=== PATIENT | female | born 2005 | race Two or more races ===

== ENCOUNTER 2025-02-22 21:11 | Emergency (ER) | payer BC, OTHER ==
[~2025-02-22] VITALS: Ht 172.7 cm; Wt 75.0 kg
--- NOTE | 2025-02-22 22:50 | DVH ---
CT BRAIN WITHOUT CONTRAST HISTORY: subjective right sided numbness/weakness x 1 day TECHNIQUE: Axial scans were obtained from the skull base through the vertex without contrast. Sagitta l and coronal reformats were generated. One or more of the following radiation dose reduction techniq ues were used for this examination: automated exposure control, adjustment of the mA and/or kV accord ing to patient size, use of iterative reconstruction technique. COMPARISON: None FINDINGS: No acute intracranial hemorrhage or evidence of large vessel territorial infarction identified at thi s time. No midline shift. The basilar cisterns are patent. Prieto-white differentiation appears relati vely preserved. The visualized paranasal sinuses and mastoid air cells are clear. No grossly displaced calvarial abno rmalities identified. IMPRESSION: No acute intracranial findings. If there is persistent clinical concern, MRI may be considered to fu rther evaluate.
[2025-02-22 23:44] VITALS: PULSE 98; RESP 17; O2SAT 98
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
[2025-02-23 01:30] VITALS: BP 124/72; PULSE 58; RESP 18; TEMP 98; O2SAT 100
== END 2025-02-23 01:31 | disposition home or self-care (01) ==
LOC: ER 21:11
DX: R20.2 Paresthesia of skin (principal); Z79.899 Other long term (current) drug therapy
CPT/HCPCS: 70450; 81025; 82947

== ENCOUNTER 2025-02-23 12:06 | Inpatient (IN) | payer BC ==
[~2025-02-23] VITALS: Ht 172.7 cm; Wt 83.0 kg
[2025-02-23] MEDS: IOHEXOL 350 MG/ML 100ML IJ ONE (12:39)
--- NOTE | 2025-02-23 12:57 | ED.PDOC ---
HPI (NEURO) HPI Comments 19y F who presents to the ED for chief complaint of R sided weakness. Pt was seen here in the ED yesterday for similar complaints including right facial numbness, R sided weakness and malaise. Pt had a negative head CT yesterday and was discharged home from the ED. Pt states yesterday's symptoms never resolved, and since earlier this AM they have worsened. Currently she is complaining of R upper and lower extremity weakness and numbness with associated posterior headache, difficulty focusing her vision and difficulty with word finding. Pt now in the ED, is alert and oriented x 4 and demonstrates no obvious abnormality in gait or speech. Pt has stable vitals with temp of 97.7 F, heart rate 76, RR 16, BP: 122/76, and 02 sat 96% on room air. 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 COTTON FARMER Hx Family History Family History: Reviewed,noncontributory to illness Social History Smoker: Non-Smoker Alcohol: Denies ETOH Use Drugs: Denies Drug Use Lives In: Home Constitutional: reports: malaise, weakness; denies: chills, diaphoresis, fatigue, fever, sweats, others EENTM: denies: blurred vision, double vision, ear bleeding, ear discharge, ear drainage, ear pain, ear ringing, eye pain, eye redness, hearing loss, mouth pain, mouth swelling, nasal discharge, nose bleeding, nose congestion, nose pain, photophobia, tearing, throat pain, throat swelling, voice changes, others Respiratory: denies: cough, hemoptysis, orthopnea, SOB at rest, shortness of breath, SOB with excertion, stridor, wheezing, others Cardiovascular: denies: chest pain, dizzy spells, diaphoresis, Dyspnea on exertion, edema, irregular heart beat, left arm pain, lightheadedness, palpitations, PND, syncope, others Gastrointestinal: denies: abdomen distended, abdominal pain, blood streaked bowels, constipated, diarrhea, dysphagia, difficulty swallowing, hematemesis, melena, nausea, poor appetite, poor fluid intake, rectal bleeding, rectal pain, vomiting, others Genitourinary: denies: abnormal vagina bleeding, burning, dyspareunia, dysuria, flank pain, frequency, hematuria, incontinence, pain, , vagina discharg e, urgency, others Neurological: reports: right sided weakness; denies: dizziness, fainting, headache, left sided numbness, left sided weakness, numbness, paresthesia, pre- existing deficit, right sided numbness, seizure, speech problems, tingling, tremors, weakness, others Musculoskeletal: denies: back pain, gout, joint pain, joint swelling, muscle pain, muscle stiffness, neck pain, others Integumetry: denies: bruises, change in color, change in hair/nails, dryness, laceration, lesions, lumps, rash, wounds, others Allergic/Immunocompromised: denies: Difficulty Healing, Frequent Infections, Hives, Itching, others Hematologic/Lymphatic: denies: anemia, blood clots, easy bleeding, easy bruising, swollen glands, others Endocrine: denies: excessive hunger, excessive sweating, excessive thirst, excessive urination, flushing, intolerance to cold, intolerance to heat, unexplained weight gain, unexplained weight loss, others Psychiatric: denies: anxiety, bipolar disorder, depression, hopeless, panic disorder, schizophrenia, sleepless, suicidal, others All Other Systems: Reviewed and Negative Physical Exam General Appearance: No Apparent Distress HEENT: PERRL/EOMI, Other (No facial asymmetry. Subjective diminished light touch sensation right face.) Neck: Full Range of Motion, Normal Inspection Respiratory: Lungs Clear, No Accessory Muscle Use, No Respiratory Distress, Normal Breath Sounds Cardiovascular: No Edema, No JVD, Regular Rate/Rhythm Breast Exam: Deferred Gastrointestinal: Non Tender, Soft Genitalia: Deferred Pelvic: Deferred Rectal: Deferred Extremities: Normal inspection, Normal range of motion, Non-tender, No pedal edema Neurologic: Alert (Oriented x4), gill tender II-XII nml as Tested (With subjective diminished light touch sensation on the right face), Motor Weakness (Right lower extremity strength 4/5, 5/5 all other extremities), Normal Affect, Normal Mood, Other (Positive pronator drift on the right) Cerebellar Function: NOT DONE Reflexes: NOT DONE Skin: Dry, Normal Color, Warm Lymphatic: NOT DONE EKG EKG : Comments Sinus rhythm, rate 76, normal intervals, normal axis, normal QRS, nonspecific T change. Was a procedure done? Was a procedure done?: No Differential Diagnosis (SZ) Seizure: CVA/TIA General Weakness: Anemia, Dehydration, Electrolyte imbalance, Encephalopathy, Hypoglycemia Headache: Migraine, Closed Head Injury, Epidural Hemorrhage, Intracerebral Hemorrhage, Subarachnoid Hemorrhage, Subdural Hemorrhage, Mass Lesion X-Ray, Labs, Meds, VS Vital Signs Date Time Temp Pulse Resp B/P (MAP) Pulse Ox O2 Delivery O2 Flow Rate FiO2 02/23/25 12:24 76 02/23/25 12:07 97.7 79 16 122/75 96 97.7 Lab Test 02/23/25 12:53 Range/Units White Blood Count 9.5 4.4-10.8 10^3/uL Red Blood Count 3.91 L 4.0-5.20 10^6/uL Hemoglobin 12.2 12.2-16.2 g/dL Hematocrit 36.1 36.0-46.0 % Mean Corpuscular Volume 92.3 80.0-100.0 fL Mean Corpuscular Hemoglobin 31.3 28.0-32.0 pg Mean Corpuscular Hemoglobin Concent 33.9 32.0-36.0 g/dL Red Cell Distribution Width 13.4 11.8-14.3 % Platelet Count 233 140-450 10^3/uL Mean Platelet Volume 8.6 6.9-10.8 fL Neutrophils (%) (Auto) 68.2 37.0-80.0 % Lymphocytes (%) (Auto) 20.9 10.0-50.0 % Monocytes (%) (Auto) 9.8 0.0-12.0 % Eosinophils (%) (Auto) 0.7 0.0-7.0 % Basophils (%) (Auto) 0.4 0.0-2.0 % Neutrophils # (Auto) 6.5 1.6-8.6 10 ^3/uL Lymphocytes # (Auto) 2.0 0.4-5.4 10 ^3/uL Monocytes # (Auto) 0.9 0-1.3 10 ^3/uL Eosinophils # (Auto) 0.1 0-0.8 10 ^3/uL Basophils # (Auto) 0 0-0.2 10 ^3/uL Nucleated Red Blood Cells 0.0 % Prothrombin Time 10.7 9.3-11.8 sec Prothrombin Time INR 1.01 0.9-1.15 Activated Partial Thromboplast Time 25.3 24.5-34.5 SEC Sodium Level 137 136-145 mmol/L Potassium Level 4.7 3.5-5.1 mmol/L Chloride Level 105 98-107 mmol/L Carbon Dioxide Level 25 20-31 mmol/L Anion Gap 7 5-15 Blood Urea Nitrogen 18 9-23 mg/dL Creatinine 0.96 0.550-1.02 mg/dL Glomerular Filtration Rate Calc 86 >90 mL/min BUN/Creatinine Ratio 18.8 10.0-20.0 Serum Glucose 101 74-106 mg/dL Calcium Level 9.2 8.7-10.4 mg/dL Current Medications Medications (Trade) Dose Ordered Sig/Delvin Route Start Time Stop Time Status Last Admin Aspirin 325 mg ONCE ONCE PO 02/23/25 14:15 02/23/25 14:16 DC 02/23/25 16:40 PROCEDURE(s): [place] - ANGIO HEAD/Neck REASON: RUE/RLE weakness ORDER NUMBER(s): [id number], ACCESSION NUMBER(s): [id number] RCLINICAL INFORMATION: Right upper extremity and right lower extremity weakness. TECHNIQUE: Axial CTA images of the head and neck were obtained prior to and after the uneventful administration of 100 mL Omnipaque 350 IV contrast. Coronal and sagittal reformatted images and MIP images were obtained, reviewed, and stored. Measurements of carotid stenosis are made per NASCET criteria. All CT scans at this medical facility are performed using dose modulation techniques as appropriate to a performed exam including the following: Automated exposure control was utilized; adjustment of the MA and/or KV according to patient size; and use of iterative reconstruction technique. CTDIvol = mGy DLP = 31.35 mGy-cm COMPARISON: CT HEAD WITHOUT CONTRAST on DOS: 02/22/25 FINDINGS: Noncontrast CT head: No acute intracranial hemorrhage. No mass effect or midline shift. Ventricles, sulci, and basal cisterns appear unremarkable. Calvarium is normal. Paranasal sinuses and mastoid air cells are clear. CTA HEAD: Posterior cerebral arteries, basilar artery, and intracranial segments of the distal vertebral arteries are normal in caliber and course with no evidence of aneurysm, large vessel occlusion, significant stenosis, or vascular malformation. The anterior and middle cerebral arteries and intracranial segments of the distal internal carotid arteries are normal in caliber and course with no evidence of aneurysm, large vessel occlusion, significant stenosis, or vascular malformation. CTA NECK: Normal configuration of the aortic arch with patent origins of the brachiocephalic artery, left common carotid artery, and left subclavian artery. Subclavian arteries are patent with no significant stenosis. The bilateral common carotid, internal carotid, and external carotid arteries are patent with no significant stenosis or evidence of dissection. Vertebral arteries are patent with no significant stenosis or evidence of dissection. IMPRESSION: 1. No acute intracranial abnormality. 2. CTA head demonstrates no evidence of large vessel occlusion, aneurysm, or significant stenosis. 3. CTA neck demonstrates no evidence of carotid or vertebral dissection or significant stenosis. 4. Additional findings as detailed above. X-Ray, Labs, Meds, VS Comment 19-year-old female with no significant past medical history presenting with ri ght facial numbness and right upper and lower extremity weakness since yesterday Vitals unremarkable Exam remarkable for subjective diminished light touch sensation on the right face, right pronator drift and 4/5 strength in the right lower extremity Rhythm strip independently interpreted by me: Sinus rhythm, rate 76, no ectopy. CT angio head and neck IMPRESSION: 1. No acute intracranial abnormality. 2. CTA head demonstrates no evidence of large vessel occlusion, aneurysm, or significant stenosis. 3. CTA neck demonstrates no evidence of carotid or vertebral dissection or significant stenosis. 4. Additional findings as detailed above. CBC, basic metabolic panel and coag panel unremarkable Patient treated with the following in the ED: Aspirin 325 mg p.o. On re-evaluation there have been no new neurologic changes. Vitals were stable. Plan is to admit the patient for brain MRI and Neurology evaluation. Time of 1ST Reevaluation: 13:49 Reevaluation 1ST: Unchanged Patient Education/Counseling: Diagnosis, Treatment Family Education/Counseling: No Family Present Departure 1 Departure Time of Disposition: 14:00 Impression: Primary Impression: Right sided weakness Disposition: ADMITTED INPATIENT Admit to: [place] Condition: Guarded Critical Care Note Critical Care Time?: No Stability Stability form required: No Heart Score Heart Score: Heart Score Response (Comments) Value History N/A 0 EKG N/A 0 Age N/A 0 Risk Factors N/A 0 Troponin N/A 0 Total 0 I personally scribed for EVELYN PETERS MD ([email or web address]) on 02/23/25 at 12:57. Electronically submitted by Radha Cortés ([facility]). EVELYN PETERS MD Feb 23, 2025 12:57
[2025-02-23 13:06] LABS: Hematocrit 36.1 % (36.0-46.0); Hemoglobin 12.2 g/dL (12.2-16.2); Mean Corpuscular Hemoglobin 31.3 pg (28.0-32.0); Mean Corpuscular Volume 92.3 fL (80.0-100.0); Nucleated Red Blood Cells % 0.0 %
[2025-02-23 13:16] LABS: Chloride 105 mmol/L (98-107); Potassium 4.7 mmol/L (3.5-5.1); Sodium 137 mmol/L (136-145)
[2025-02-23 13:17] LABS: Anion Gap 7 (5-15); Calcium 9.2 mg/dL (8.7-10.4); Carbon Dioxide 25 mmol/L (20-31)
[2025-02-23 13:22] LABS: BUN/Creatinine Ratio 18.8 (10.0-20.0); Blood Urea Nitrogen 18 mg/dL (9-23); Glucose 101 mg/dL (74-106); INR 1.01 (0.9-1.15); Partial Thromboplastin Time 25.3 SEC (24.5-34.5); Prothrombin Time 10.7 sec (9.3-11.8)
--- NOTE | 2025-02-23 13:52 | DVH ---
RCLINICAL INFORMATION: Right upper extremity and right lower extremity weakness. TECHNIQUE: Axial CTA images of the head and neck were obtained prior to and after the uneventful adm inistration of 100 mL Omnipaque 350 IV contrast. Coronal and sagittal reformatted images and MIP imag es were obtained, reviewed, and stored. Measurements of carotid stenosis are made per NASCET criteria . All CT scans at this medical facility are performed using dose modulation techniques as appropriate to a performed exam including the following: Automated exposure control was utilized; adjustment of the MA and/or KV according to patient size; and use of iterative reconstruction technique. CTDIvol = mGy DLP = 31.35 mGy-cm COMPARISON: CT HEAD WITHOUT CONTRAST on DOS: 02/22/25 FINDINGS: Noncontrast CT head: No acute intracranial hemorrhage. No mass effect or midline shift. Ventricles, s ulci, and basal cisterns appear unremarkable. Calvarium is normal. Paranasal sinuses and mastoid air cells are clear. CTA HEAD: Posterior cerebral arteries, basilar artery, and intracranial segments of the distal verteb ral arteries are normal in caliber and course with no evidence of aneurysm, large vessel occlusion, s ignificant stenosis, or vascular malformation. The anterior and middle cerebral arteries and intracra nial segments of the distal internal carotid arteries are normal in caliber and course with no eviden ce of aneurysm, large vessel occlusion, significant stenosis, or vascular malformation. CTA NECK: Normal configuration of the aortic arch with patent origins of the brachiocephalic artery, left common carotid artery, and left subclavian artery. Subclavian arteries are patent with no signif icant stenosis. The bilateral common carotid, internal carotid, and external carotid arteries are pat ent with no significant stenosis or evidence of dissection. Vertebral arteries are patent with no sig nificant stenosis or evidence of dissection. IMPRESSION: 1. No acute intracranial abnormality. 2. CTA head demonstrates no evidence of large vessel occlusion, aneurysm, or significant stenosis. 3. CTA neck demonstrates no evidence of carotid or vertebral dissection or significant stenosis. 4. Additional findings as detailed above.
[2025-02-23] MEDS ORDERED: MORPHINE SULFATE INJ 2 MG/ml SYRG IV PRN (15:45)
[2025-02-23] MEDS ORDERED: DOCUSATE SOD 100 MG CAP PO PRN (15:45)
[2025-02-23] MEDS ORDERED: NITROGLYCERIN 0.4 MG SL TAB SL PRN (15:45)
[2025-02-23] MEDS ORDERED: ONDANSETRON HCL 4 MG/2 ML VIAL IV PRN (15:45)
--- NOTE | 2025-02-23 16:08 | DVHHP2 ---
History of Present Illness Reason for Visit: Right-sided weakness History of Present Illness 19-year-old female no past medical history no surgical history chief complaint patient stated she came here yesterday for similar symptoms she had a CT scan of the brain was discharged home told her she had anxiety but she states she woke up this morning with worsening right-sided weakness and numbness and slurred speech at 6:00 a.m.. Patient also state she feels tired. She stated she has continued right-sided numbness and tingling. She also complain of a headache with some dizziness. Nothing making it better nothing making it worse. Patient does admit that on February 15, 2025 she has a lumbar phosphate injection for some back issues at [facility] she did called the center and they stated her current symptoms were not related to her back injection she does not complain of lower back pain patient denies any chest pain no shortness with the breath when evaluating patient's labs and imaging from ED CBC was unremarkable BNP unremarkable patient was provided aspirin CT angio head was unremarkable along with the neck unremarkable patient had a CT scan of the brain I reviewed from yesterday was unremarkable with these findings we will admit and ask for Neurology evaluation also we will keep NPO until swallow test is completed. We will admit for rule out ischemic stroke Pulmonary: COPD Past Medical History See HPI above Past Surgical History See HPI above Family History Reviewed, non-contributory to the management of this case. Past Social History The patient lives at home, denies smoking, alcohol or illicit drugs abuse. Review of Systems Constitutional: No: Fever, Chills, Sweats, Weakness, Malaise, Other Eyes: No: Pain, Vision change, Conjunctivae inflammation, Eyelid inflammation, Other, Redness ENT: No: Ear pain, Ear discharge, Nose pain, Nose discharge, Nose congestion, Mouth pain, Mouth swelling, Throat pain, Throat swelling, Other Respiratory: No: Cough, Dry, Shortness of breath, SOB with excertion, Wheezing, Hemoptysis, Pleuritic Pain, Sputum, Wheezing, Other Cardiovascular: No: Chest Pain, Palpitations, Orthopnea, Paroxysmal Noc. Dyspnea, Edema, Lt Headedness, Other Gastrointestinal: No: Nausea, Vomiting, Abdominal Pain, Diarrhea, Constipation, Melena, Hematochezia, Other Genitourinary: No Dysuria, No Frequency, No Incontinence, No Hematuria, No Retention, No Other Musculoskeletal: No: other, neck pain, shoulder pain, arm pain, back pain, hand pain, leg pain, foot pain Skin: No: Rash, Lesions, Jaundice, Bruising, Other Neurological: Weakness, Numbness, Change in speech Allergies: Coded Allergies: NO KNOWN ALLERGIES (Unverified , 02/22/25) Medications Current Medications Medications Dose Ordered Sig/Delvin Route Start Time Stop Time Status Last Admin Dose Admin Sodium Chloride 1,000 ml @ 120 mls/hr Q8H20M IV 02/23/25 15:45 UNV Ondansetron HCl 4 mg Q4HP PRN IV 02/23/25 15:45 UNV Docusate Sodium 100 mg BIDPRN PRN PO 02/23/25 15:45 UNV Morphine Sulfate 2 mg Q4HPRN PRN IV 02/23/25 15:45 UNV Nitroglycerin 0.4 mg Q5MINP PRN SL 02/23/25 15:45 UNV Aspirin 81 mg DAILY PO 02/24/25 10:00 UNV Exam Vital Signs Vital Signs Date Time Temp Pulse Resp B/P (MAP) Pulse Ox O2 Delivery O2 Flow Rate FiO2 02/23/25 12:24 76 02/23/25 12:07 97.7 16 122/75 96 97.7 General Appearance: Alert, Oriented X3, Cooperative, No acute distress HEENT: Atraumatic, PERRLA, EOMI, Mucous membr. moist/pink Respiratory: Clear to auscultation, Normal air movement Cardiovascular: Regular rate, Normal S1, Normal S2, No murmurs Abdominal: Normal bowel sounds, Soft, No tenderness, No hepatospenomegaly, No masses Extremities: No clubbing, No cyanosis, No edema, Normal pulses, No tenderness/swelling Skin: No rashes, No breakdown, No significant lesion Neuro: Other (Right-sided weakness noted on my exam positive pronator drift, lower lumbar no swelling no deformity no open wounds) Psych/Mental Status: Mental status NL, Mood NL Labs/Xrays CT scan of the brain reviewed from yesterday unremarkable CT angio head and neck unremarkable I reviewed labs, imaging CT scan abdomen pelvis, EKG and all diagnostic studies on this patient from ED records and the medical chart Labs Test 02/23/25 12:53 Range/Units White Blood Count 9.5 4.4-10.8 10^3/uL Red Blood Count 3.91 L 4.0-5.20 10^6/uL Hemoglobin 12.2 12.2-16.2 g/dL Hematocrit 36.1 36.0-46.0 % Mean Corpuscular Volume 92.3 80.0-100.0 fL Mean Corpuscular Hemoglobin 31.3 28.0-32.0 pg Mean Corpuscular Hemoglobin Concent 33.9 32.0-36.0 g/dL Red Cell Distribution Width 13.4 11.8-14.3 % Platelet Count 233 140-450 10^3/uL Mean Platelet Volume 8.6 6.9-10.8 fL Neutrophils (%) (Auto) 68.2 37.0-80.0 % Lymphocytes (%) (Auto) 20.9 10.0-50.0 % Monocytes (%) (Auto) 9.8 0.0-12.0 % Eosinophils (%) (Auto) 0.7 0.0-7.0 % Basophils (%) (Auto) 0.4 0.0-2.0 % Neutrophils # (Auto) 6.5 1.6-8.6 10 ^3/uL Lymphocytes # (Auto) 2.0 0.4-5.4 10 ^3/uL Monocytes # (Auto) 0.9 0-1.3 10 ^3/uL Eosinophils # (Auto) 0.1 0-0.8 10 ^3/uL Basophils # (Auto) 0 0-0.2 10 ^3/uL Nucleated Red Blood Cells 0.0 % Prothrombin Time 10.7 9.3-11.8 sec Prothrombin Time INR 1.01 0.9-1.15 Activated Partial Thromboplast Time 25.3 24.5-34.5 SEC Sodium Level 137 136-145 mmol/L Potassium Level 4.7 3.5-5.1 mmol/L Chloride Level 105 98-107 mmol/L Carbon Dioxide Level 25 20-31 mmol/L Anion Gap 7 5-15 Blood Urea Nitrogen 18 9-23 mg/dL Creatinine 0.96 0.550-1.02 mg/dL Glomerular Filtration Rate Calc 86 >90 mL/min BUN/Creatinine Ratio 18.8 10.0-20.0 Serum Glucose 101 74-106 mg/dL Calcium Level 9.2 8.7-10.4 mg/dL SEPSIS Sepsis Screen Date sepsis recognized/suspect: Feb 23, 2025 Time Sepsis recognized/suspect: 1209 Recent Procedure: No On Antibiotic Therapy: No Respiratory Rate >20: No Heart Rate >90: No Temp<36 C (96.8 F) or >38.3 C: No SBP <90 or MAP <65 mmHG: No New Acute Mental Status Change: No Is the patient on CPAP, BIPAP,: No Physician Orders Urinalysis (02/23/25 12:20) Electrocardigram (02/23/25 12:20) Angio Head/Neck (02/23/25 12:30) * Neurology Consult (02/23/25 15:38) Neuro Checks Q2hrs Q2HR (02/23/25 15:38) Admit (02/23/25 15:38) Allergies (02/23/25 15:38) Code Status (02/23/25 15:38) Sodium Chloride 0.9% (02/23/25 15:45) Ondansetron Hcl (Zofran) (02/23/25 15:45) Docusate Sodium Capsule (Colace Capsule) (02/23/25 15:45) Complete Blood Count (02/24/25 04:00) Comprehensive Metabolic Panel (02/24/25 04:00) Npo (Nothing By Mouth) Diet (02/23/25 Dinner) Pt Request For Service (02/23/25 15:38) Condition: Stable (02/23/25 15:38) BRP (02/23/25 15:38) Morphine Sulfate Injection (02/23/25 15:45) Sequential Compression Device (02/23/25 ) Nitroglycerin Sublingual (Ntrostat Subli (02/23/25 15:45) Stat Ekg For Chest Pain (02/23/25 15:38) Notify Md Of Changes From Base (02/23/25 15:38) Welding Tester For 24 Hours (02/23/25 15:38) Emergency Dysrhythmia Protocol (02/23/25 15:38) Rhythm Strips Once Every Shift (02/23/25 15:38) Oxygen By Nasal Cannula (02/23/25 15:38) * Swallow Request (02/23/25 15:38) Aspirin Tablet (02/23/25 15:45) Aspirin Tablet (02/24/25 10:00) Vital Signs Date Time Temp Pulse Resp B/P (MAP) Pulse Ox O2 Delivery O2 Flow Rate FiO2 02/23/25 12:24 76 02/23/25 12:07 97.7 79 16 122/75 96 97.7 Laboratory Tests Test 02/23/25 12:53 White Blood Count 9.5 10^3/uL (4.4-10.8) Assessment/Plan Assessment/Plan acute right side weakness r/o ischemic stroke ct scan brain negative, ct angio head and neck negative ordered asa Neurology consult Consider MRI of the brain Stroke protocol and precautions PT OT eval and treat Cardiac diet cons asa atorvastatin neuro checks q2h ordered swallow eval fall precautions Bedrest ordered Echo fu results Acute dizziness rule out stroke ordered aspirin fall precaution Pt eval and treat fen/ppx npo until swallow evaluation hl ivf scd plan admit to medicine neurology consult Plan discussed with: Patient My Orders Orders - SHANEKA GIBBS DNP Procedure Category Date Status Time * Neurology Consult CONS 02/23/25 Transmitted 15:38 Neuro Checks Q2hrs XIMENA 02/23/25 In Process 15:38 Admit ADMIT 02/23/25 Transmitted 15:38 Allergies XIMENA 02/23/25 In Process 15:38 Code Status CODE 02/23/25 Transmitted 15:38 Sodium Chloride 0.9% PHA 02/23/25 Logged 15:45 Ondansetron Hcl PHA 02/23/25 Logged (Zofran) 15:45 Docusate Sodium PHA 02/23/25 Logged Capsule (Colace 15:45 Complete Blood Count LAB 02/24/25 Verified 04:00 Comprehensive LAB 02/24/25 Verified Metabolic Panel 04:00 Npo (Nothing By DIET 02/23/25 Transmitted Mouth) Diet Dinner Pt Request For Service PT 02/23/25 Logged 15:38 Condition: Stable XIMENA 02/23/25 In Process 15:38 BRP XIMENA 02/23/25 In Process 15:38 Morphine Sulfate PHA 02/23/25 Logged Injection 15:45 Sequential XIMENA 02/23/25 In Process Compression Device Nitroglycerin PHA 02/23/25 Logged Sublingual (Ntrostat 15:45 Stat Ekg For Chest XIMENA 02/23/25 In Process Pain 15:38 Notify Of Changes XIMENA 02/23/25 In Process From Base 15:38 Welding Tester For [facility] 02/23/25 In Process 24 Hours 15:38 Emergency Dysrhythmia [facility] 02/23/25 In Process Protocol 15:38 Rhythm Strips Once [facility] 02/23/25 In Process Every Shift 15:38 Oxygen By Nasal RT 02/23/25 Transmitted Cannula 15:38 * Swallow Request ST 02/23/25 Transmitted 15:38 Aspirin Tablet PHA 02/23/25 Logged 15:45 Aspirin Tablet PHA 02/24/25 Logged 10:00 Date of Service: Feb 23, 2025 Billing Provider: SHANEKA GIBBS DNP Common Visit Codes: [id number] INP/OBS CARE (HIGH) SHANEKA GIBBS DNP Feb 23, 2025 16:08
[2025-02-23] MEDS: SODIUM CHLORIDE 0.9% 1,000 ML IV SCH (18:18)
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
--- NOTE | 2025-02-23 23:34 | ECG ---
[facility] Test Date: 2025-02-23 Test Time: 12:24:33 Pat Name: DAVID CORDON Department: ED Room: 024[facility] Gender: F Bullard Operator: ER : 2005 Requested By: EVELYN CHRISTENSEN Order Number: [id number] Reading MD: Rafael Jensen Measurements Intervals [place] Rate: 76 P: 75 NC: 149 QRS: 87 QRSD: 83 T: 24 QT: 374 QTc: 421 Interpretive Statements Sinus rhythm Borderline T wave abnormalities Electronically Signed On 02-27-2025 18:06:50 PDT by Rafael Jensen Please click the below link to view image of tracing.
--- NOTE | 2025-02-23 23:35 | ECG ---
[facility] Test Date: 2025-02-23 Test Time: 18:24:23 Pat Name: DAVID CORDON Department: ED Room: 024[facility] Gender: F Security Guard: CARLO : 2005 Requested By: EVELYN CHRISTENSEN Order Number: [id number] Reading MD: Rafael Jensen Measurements Intervals [place] Rate: 78 P: 63 NM: 157 QRS: 75 QRSD: 82 T: 44 QT: 381 QTc: 434 Interpretive Statements Sinus rhythm Consider left atrial enlargement Electronically Signed On 02-27-2025 18:12:05 PDT by Rafael Jensen Please click the below link to view image of tracing.
[2025-02-24] VITALS (10 sets, daily range): BP systolic 101–132; BP diastolic 59–83; PULSE 61–79; RESP 14–20; TEMP 96.8–98.7; O2SAT 98–100
[2025-02-24 08:20] LABS: Hematocrit 35.8 % (36.0-46.0); Hemoglobin 12.2 g/dL (12.2-16.2); Mean Corpuscular Hemoglobin 31.3 pg (28.0-32.0); Mean Corpuscular Volume 92.0 fL (80.0-100.0); Nucleated Red Blood Cells % 0.0 %
[2025-02-24 08:25] LABS: Urine Protein, UAD Negative (Negative)
[2025-02-24 08:38] LABS: Alanine Aminotransferase 13 U/L (7-40); Albumin 4.3 g/dL (3.2-4.8); Anion Gap 9 (5-15); BUN/Creatinine Ratio 17.7 (10.0-20.0); Bilirubin, Total 0.5 mg/dL (0.2-1.0); Blood Urea Nitrogen 14 mg/dL (9-23); Calcium 8.9 mg/dL (8.7-10.4); Carbon Dioxide 24 mmol/L (20-31); Glucose 85 mg/dL (74-106); Potassium 4.2 mmol/L (3.5-5.1); Sodium 140 mmol/L (136-145); Total Protein 6.5 g/dL (5.7-8.2)
[2025-02-24 08:40] LABS: Alkaline Phosphatase 35 U/L (46-116); Chloride 107 mmol/L (98-107)
--- NOTE | 2025-02-24 09:40 | DVH ---
CLINICAL INDICATION: CVA COMPARISON: CT HEAD WITHOUT CONTRAST on DOS: 02/22/25 TECHNIQUE: Multisequence multiplanar MRI images of the brain were obtained without contrast. FINDINGS: Focal area of restricted diffusion measuring up to 2.5 cm in the left frontal lobe white m atter adjacent to the atrium of the left lateral ventricle. There is associated mild T2/FLAIR hyperin tense signal in this location. There are multiple additional smaller foci of T2/FLAIR hyperintense s ignal in the periventricular white matter bilaterally. No mass or midline shift. Ventricles and sulci are within normal limits. Basal cisterns are patent. Cerebellum, brainstem, and midline structures a re within normal limits. Mild mucosal thickening of the paranasal sinuses. Orbits are grossly unremar kable. IMPRESSION: Focal area of restricted diffusion in the left frontal lobe periventricular white matter with associa marisela mild T2/FLAIR hyperintense signal in this location. Multiple additional smaller foci of T2/FLAIR hyperintense signal are seen in the periventricular white matter bilaterally without associated restr icted diffusion. Differential considerations would include sequelae of ischemia, including acute or s ubacute ischemia involving the focus of restricted diffusion in the left frontal lobe. Other potentia l etiologies would include demyelinating disease or vasculitis, although no findings to suggest vascu litis on recent CTA exam. Correlate with clinical findings.
[2025-02-24] MEDS: SODIUM CHLORIDE 0.9% 1,000 ML IV SCH (14:21)
--- NOTE | 2025-02-24 21:14 | DVHPN2 ---
Subjective Alert awake oriented to place and person comfortable in bed. Mother is at bedside. Evaluated by neurologist. Had an MRI of the brain showed nonspecific findings. Changes from previous H/P or p: No Changes Objective Vitals Vital Signs Date Time Temp Pulse Resp B/P (MAP) Pulse Ox O2 Delivery O2 Flow Rate FiO2 02/24/25 17:10 97.8 72 19 110/67 (81) 98 97.8 02/24/25 08:00 Room Air* 0 21 Intake/Output Intake and Output 02/24/25 07:00 Intake Total 0 ml Balance 0 ml Intake Oral 0 ml Exam She is comfortable in bed. Able to get up and walk with the physical therapy. Says her back pain and numbness in the leg is improving. Patient does not have any complains of blurred vision. No headache nausea vomiting. Pupils equal round react to light. Neck supple. No nystagmus. Heart regular rate and rhythm S1-S2. Lungs fair air movement without rales wheezes. Abdomen soft nontender positive bowel sounds. Extremities no edema positive pulses. Neurologically no focal deficits noted. Medications Current Medications Medications Dose Ordered Sig/Delvin Route Start Time Stop Time Status Last Admin Dose Admin Ondansetron HCl 4 mg Q4HP PRN IV 02/23/25 15:45 Docusate Sodium 100 mg BIDPRN PRN PO 02/23/25 15:45 Morphine Sulfate 2 mg Q4HPRN PRN IV 02/23/25 15:45 Nitroglycerin 0.4 mg Q5MINP PRN SL 02/23/25 15:45 Aspirin 81 mg DAILY PO 02/24/25 10:00 02/24/25 09:37 81 MG Sodium Chloride 1,000 ml @ 70 mls/hr [id number] IV 02/24/25 12:30 02/24/25 14:21 70 MLS/HR Laboratory Results Laboratory Tests 02/24/25 06:58 Chemistry Test 02/24/25 06:58 Albumin 4.3 g/dL (3.2-4.8) Calcium Level 8.9 mg/dL (8.7-10.4) Total Protein 6.5 g/dL (5.7-8.2) LFT Test 02/24/25 06:58 Alanine Aminotransferase (ALT) 13 U/L (7-40) Alkaline Phosphatase 35 U/L (46-116) L Aspartate Amino Transferase (AST) 14 U/L (13-40) Total Bilirubin 0.5 mg/dL (0.2-1.0) Urinalysis Test 02/24/25 07:20 Urine Color Yellow (Yellow) Urine Clarity Clear (Clear) Urine pH 6.0 (5.0-9.0) Urine Specific [place] 1.030 (1.001-1.035) Urine Protein Negative (Negative) Urine Ketones Negative (Negative) Urine Blood Negative /uL (Negative) Urine Nitrite Negative (Negative) Urine Bilirubin Negative (Negative) Urine Urobilinogen Normal mg/dL (Negative) Urine Leukocyte Esterase Negative /uL (Negative) Urine RBC <1 /hpf (0 - 4) Urine Microscopic WBC 2 /HPF (0-5) Urine Squamous Epithelial Cells Few /hpf (<5) Urine Bacteria Few /hpf (None Seen) H Urine Mucus Few (None Seen) Urine Glucose Normal mg/dL (Normal) Assessment/Plan Assessment/Plan To continue present supportive care and treatment as he is on. Encouraged activity. We will check vitamin B12 levels and thyroid panel for paresthesias. Otherwise continue rest of supportive care and treatment and further clinical management per clinical course and recommendations from the urologist. Updated the patient's mom at bedside regarding care plan. Plan discussed with: Patient, Other My Orders Orders - SANTIAGO BERMUDEZ MD Procedure Category Date Status Time Cardiac DIET 02/24/25 Transmitted Diet-2gna,Lofat,Lochol Lunch Sodium Chloride 0.9% PHA 02/24/25 In Process 12:30 Problem List: (1) Facial paresthesia (2) Right sided weakness (3) Paresthesia of right arm and leg Date of Service: Feb 24, 2025 Billing Provider: SANTIAGO BERMUDEZ MD Common Visit Codes: [id number] INP/OBS CARE(MOD) SANTIAGO BERMUDEZ MD Feb 24, 2025 21:14
--- NOTE | 2025-02-24 23:27 | DVHPN2 ---
Progress Note - Dictate Date Seen: Feb 24, 2025 Medical Necessity Reason Pt with a Central, PICC or Fol: No Subjective Ms. Jose is a 19 years old right-handed female otherwise healthy, she came to the [facility] with a chief company of right-sided numbness I have seen and examined the patient, discussed with her nurse, the patient reports doing much better today, she is able to walk with a walker, she has no new complaints But MRI brain scan showed multiple lesions, I suspect MS, vasculitis or inflammatory disorder Urinalysis, 02/24/2025: No UTI CBC, 02/23/2025: Unremarkable BMP 02/23/25: Okay CT head, 02/22/2025: No acute intracranial findings. If there is persistent clinical concern, MRI may be considered to further evaluate. CTA head, neck, 02/23/2025: 1. No acute intracranial abnormality. 2. CTA head demonstrates no evidence of large vessel occlusion, aneurysm, or significant stenosis. 3. CTA neck demonstrates no evidence of carotid or vertebral dissection or significant stenosis. 4. Additional findings as detailed above MRI head, 02/24/2025: Focal area of restricted diffusion in the left frontal lobe periventricular white matter with associated mild T2/FLAIR hyperintense signal in this location. Multiple additional smaller foci of T2/FLAIR hyperintense signal are seen in the periventricular white matter bilaterally without associated restricted diffusion. Differential considerations would include sequelae of ischemia, including acute or subacute ischemia involving the focus of restricted diffusion in the left frontal lobe. Other potential etiologies would include demyelinating disease or vasculitis, although no findings to suggest vasculitis on recent CTA exam. Correlate with clinical findings. vital signs Vital Sign Date Time Temp Pulse Resp B/P (MAP) Pulse Ox O2 Delivery O2 Flow Rate FiO2 02/24/25 21:00 98.1 76 16 118/68 (85) 99 98.1 02/24/25 08:00 Room Air* 0 21 Total Intake and Output 02/23/25 02/23/25 02/24/25 15:00 23:00 07:00 Intake Total 0 ml Balance 0 ml medications Current Medications Medications Dose Ordered Sig/Delvin Route Start Time Stop Time Status Last Admin Dose Admin Ondansetron HCl 4 mg Q4HP PRN IV 02/23/25 15:45 Docusate Sodium 100 mg BIDPRN PRN PO 02/23/25 15:45 Morphine Sulfate 2 mg Q4HPRN PRN IV 02/23/25 15:45 Nitroglycerin 0.4 mg Q5MINP PRN SL 02/23/25 15:45 Aspirin 81 mg DAILY PO 02/24/25 10:00 02/24/25 09:37 81 MG Sodium Chloride 1,000 ml @ 70 mls/hr [id number] IV 02/24/25 12:30 02/24/25 14:21 70 MLS/HR objective General: the patient is well developed and nourished. No acute distress. MENTAL STATUS: Subjective SPEECH, LANGUAGE, HIGHER CORTICAL FUNCTION: no aphasia or dysathria. CRANIAL NERVES: Pupils are equal, round and reactive. EOMs full and conjugate. No nystagmus. Diminished pinprick and light touch in the right face, but absence of pinprick light touch if both side face is examined simultaneously. Mandibular strength intact. Facial muscles symmetrical and strength intact. Tongue midline. No fasciculations or atrophy. SENSATION: Sensation to touch and pinprick is diminished in the right neck, shoulder, extremities and torso, the sensation to light touch and pinprick is a bsent in the right neck, shoulder, extremities, torso if both side are examined simultaneously MOTOR: Normal tone in the upper and lower extremity. Normal muscle bulk. No fasciculations. No abnormal movements or posturing. Muscle strength of the major groups in the left extremities is 5/5. Muscle strength of the major groups in the right extremities is3-4/5. REFLEXES: Deep tendon reflexes are symmetrical. No pathological reflexes. CEREBELLAR/COORDINATION: Deferred GAIT/STATION: deferred.Whole right-sided paresthesia, weakness, etiology unclear laboratory and microbiology Laboratory Tests 02/24/25 06:58 Test 02/24/25 06:58 Range/Units Serum Glucose 85 74-106 mg/dL Problem List Whole right-sided paresthesia, weakness, etiology unclear Multiple sclerosis Sarcoidosis Vasculitis As inflammatory disorder Assessment/Plan Monitoring Supportive treatment Telemetry CRP ESR ESTHER RF C3, C4 RICHARD ANCA panel Chest x-ray MRI brain w scan MRI C-spine with without contrast MRI T-spine with without contrast Up to chair Physical therapy More recommendation per clinical course This medical document was created using an electronic medical record system with sevenload dictation system. Although this document has been carefully reviewed, there may still be some phonetic and typographical errors. These areas are purely typographical due to imperfections of the software programs, and do not reflect any compromise in the patient's medical care. Prognosis poor Plan discussed with: Patient, Other Total Time (mins): 40 DANN RICE MD Feb 24, 2025 23:27
[2025-02-25] VITALS (8 sets, daily range): BP systolic 109–134; BP diastolic 56–80; PULSE 67–80; RESP 12–18; TEMP 97.5–99.4; O2SAT 95–99
[2025-02-25] MEDS ORDERED: LORazepam 2MG/ML-1ML VIAL IV PRN
--- NOTE | 2025-02-25 10:34 | DVH ---
CLINICAL INFORMATION: Multiple sclerosis. TECHNIQUE: Multisequence multiplanar MRI images of the cervical spine were obtained prior to and afte r the uneventful administration of clariscan contrast. Exam title says MRI neck with contrast, [facility] was performed due to the clinical indication for the examination. COMPARISON: MRI BRAIN HEAD WO CONTRAST on DOS: 02/24/25, CT ANGIO HEAD/NECK on DOS: 02/23/25 FINDINGS: Bones: Mild reversal of the normal cervical lordosis. No significant spondylolisthesis. Vertebral genesis dy heights are maintained. Posterior elements are intact. No acute fracture. No focal suspicious aaron ow signal abnormality. Spinal cord: Spinal cord is normal in signal intensity and morphology. No abnormal epidural or leptom eningeal enhancement. No focal demyelinating lesions are seen in the spinal cord. Paraspinal soft tissues: Paraspinal and prevertebral soft tissues are unremarkable. No abnormal postc ontrast enhancement. Other: No abnormal postcontrast enhancement. Cervical disc levels: C2-C3: Mild disc desiccation. No significant disc bulge. 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 No significant neural foraminal stenosis. C3-C4: No significant disc bulge. Mild congenital spinal canal stenosis. No significant neural forami nal stenosis. C4-C5: No significant disc bulge. Mild congenital spinal canal stenosis. No significant neural forami nal stenosis. C5-C6: No significant disc bulge. Mild congenital spinal canal stenosis. No significant neural forami nal stenosis. C6-C7: No significant disc bulge or spinal canal stenosis. No significant neural foraminal stenosis. C7-T1: No significant disc/facet abnormality. No significant spinal canal or neural foraminal stenos is. IMPRESSION: 1. Spinal cord is normal in signal intensity and morphology. No demyelinating lesions are seen in the spinal cord. 2. Mild reversal of the normal cervical lordosis. No significant spondylolisthesis. 3. 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 No significant disc bulge. No signi ficant neural foraminal stenosis. 4. No abnormal postcontrast enhancement.
--- NOTE | 2025-02-25 10:40 | DVH ---
CLINICAL HISTORY: Multiple sclerosis. TECHNIQUE: Multi sequence multi planar MRI images of the thoracic spine were obtained prior to and a fter the uneventful administration of Clariscan contrast. STIR sequence was repeated due to artifact. COMPARISON: None FINDINGS: Vertebral body alignment is within normal limits. Vertebral body heights are maintained. Posterior elements are intact. No evidence of acute fracture. No focal marrow signal abnormality iden tified. Disc spaces are maintained. No significant disc bulge or spinal canal stenosis in the thoraci c spine. No significant neural foraminal stenosis. Spinal cord normal in signal intensity and morpho logy. No definite demyelinating lesion identified in the spinal cord. No abnormal postcontrast enhanc ement is seen. Paraspinal soft tissues are unremarkable. IMPRESSION: 1. Spinal cord is normal in signal intensity and morphology. No demyelinating lesions identified in the spinal cord. 2. No abnormal postcontrast enhancement. 3. No significant disc/ facet abnormality. No significant spinal canal or neural foraminal stenosis in the thoracic spine.
--- NOTE | 2025-02-25 11:54 | DVH ---
CLINICAL INFORMATION: Infiltrates. TECHNIQUE: Frontal and lateral chest radiographs were obtained. COMPARISON: None FINDINGS: Lungs: Clear. Cardiac: Heart size is within normal limits. Pulmonary vasculature: Unremarkable Mediastinum/sigrid: Within normal limits. Bones: No evidence of acute osseous abnormality. Other: No other significant finding. IMPRESSION: No evidence of acute disease in the chest.
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
[2025-02-25] MEDS: GADOTERATE MEG 10 MMOL/20ml INJ (0.5MMOL/ml) IV ONE (16:17)
[2025-02-26] VITALS (8 sets, daily range): BP systolic 102–113; BP diastolic 54–73; PULSE 61–75; RESP 14–17; TEMP 97.6–98.4; O2SAT 97–99
--- NOTE | 2025-02-26 07:18 | DVH ---
CLINICAL INDICATION: Evaluate for evidence of multiple sclerosis. COMPARISON: MRI BRAIN HEAD WO CONTRAST on DOS: 02/24/25, CT HEAD WITHOUT CONTRAST on DOS: 02/22/25 TECHNIQUE: Multi planar T1 weighted MRI images of the brain were obtained prior to and after the unev entful administration of 15 mL Clariscan contrast. Postcontrast axial T2 FLAIR images were also obtai sim. FINDINGS: The white-matter lesions seen on recent noncontrast enhanced exam demonstrate hypointense T1 signal on the precontrast images. There are areas of patchy postcontrast enhancement in the left f rontal lobe white matter lesion seen on recent noncontrast enhanced MRI adjacent to the atrium of the left lateral ventricle. This lesion also shows restricted diffusion on the recent noncontrast enhanc ed MRI exam. There is also subtle enhancement in portions of a white matter lesion adjacent to the an terior horn of the left lateral ventricle and small foci of enhancement in some of the smaller white matter lesions in the right frontal lobe. No other abnormal parenchymal or meningeal enhancement. IMPRESSION: There are areas of enhancement in some of the white-matter lesions, including the largest lesion in the left frontal lobe white matter near the atrium of the left lateral ventricle, may be d ue to areas of active demyelination in the appropriate clinical setting. Correlate with clinical find ings.
[2025-02-26] MEDS ORDERED: ACETAMINOPHEN 325 MG TAB PO PRN (12:15)
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
[2025-02-27] VITALS (7 sets, daily range): BP systolic 102–144; BP diastolic 55–78; PULSE 60–77; RESP 14–18; TEMP 97.2–98.2; O2SAT 98–100
[2025-02-27 10:52] LABS: Free T4 (Free Thyroxine) 1.03 ng/dL (0.89-1.76)
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
[2025-02-27] MEDS: ENOXAPARIN SOD 40 MG/0.4 ML SYRINGE SC ONE (19:01)
--- NOTE | 2025-02-27 23:17 | DVHPN2 ---
Progress Note - Dictate Date Seen: Feb 27, 2025 Medical Necessity Reason Pt with a Central, PICC or Fol: No Subjective Ms. Garcia is a 19 years old right-handed female otherwise healthy, she came to the [facility] with a chief company of right-sided numbness I have seen and examined the patient, discussed with her nurse, the patient reports doing much better today, no new complaints The case was discussed with Dr. Pettit She has been advised to follow up with me JAIME, I have discussing her that she needs to be seen in the higher level care C3, 02/25/2025: 104 C4, :24 RF, 02/25/2025: Normal Urinalysis, 02/24/2025: No UTI CBC, 02/23/2025: Unremarkable ESR, 02/24/2025: Eight BMP 02/23/25: Okay CRP, 02/24/2025: 0.02 Vitamin B12, 02/25/2025: 299 Folic acid, 02/25/2025: 11.14 TSH, 02/25/2025: 1.68 RICHARD: 02/25/2025: Chest X-ray, 02/25/2025: No evidence of acute disease in the chest CT head, 02/22/2025: No acute intracranial findings. If there is persistent clinical concern, MRI may be considered to further evaluate. CTA head, neck, 02/23/2025: 1. No acute intracranial abnormality. 2. CTA head demonstrates no evidence of large vessel occlusion, aneurysm, or significant stenosis. 3. CTA neck demonstrates no evidence of carotid or vertebral dissection or significant stenosis. 4. Additional findings as detailed above MRI head, 02/24/2025: Focal area of restricted diffusion in the left frontal lobe periventricular white matter with associated mild T2/FLAIR hyperintense signal in this location. Multiple additional smaller foci of T2/FLAIR hyperintense signal are seen in the periventricular white matter bilaterally without associated restricted diffusion. Differential considerations would include sequelae of ischemia, including acute or subacute ischemia involving the focus of restricted diffusion in the left frontal lobe. Other potential etiologies would include demyelinating disease or vasculitis, although no findings to suggest vasculitis on recent CTA exam. Correlate with clinical findings MR head with and without, 02/25/2025: There are areas of enhancement in some of the white-matter lesions, including the largest lesion in the left frontal lobe white matter near the atrium of the left lateral ventricle, may be due to areas of active demyelination in the appropriate clinical setting. Correlate with clinical findings MRI C-spine, 02/25/25: 1. Spinal cord is normal in signal intensity and morphology. No demyelinating lesions are seen in the spinal cord. 2. Mild reversal of the normal cervical lordosis. No significant spondylolisthesis. 3. 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 No significant disc bulge. No significant neural foraminal stenosis. 4. No abnormal postcontrast enhancement. MRI thoracic spine, 02/25/2025: 1. Spinal cord is normal in signal intensity and morphology. No demyelinating lesions identified in the spinal cord. 2. No abnormal postcontrast enhancement. 3. No significant disc/ facet abnormality. No significant spinal canal or neural foraminal stenosis in the thoracic spine vital signs Vital Sign Date Time Temp Pulse Resp B/P (MAP) Pulse Ox O2 Delivery O2 Flow Rate FiO2 02/27/25 21:00 98.2 77 17 105/66 (79) 99 98.2 02/27/25 08:00 Room Air* 0 21 Total Intake and Output 02/26/25 02/26/25 02/27/25 15:00 23:00 07:00 Intake Total 1000 ml 50 ml 300 ml Balance 1000 ml 50 ml 300 ml medications Current Medications Medications Dose Ordered Sig/Delvin Route Start Time Stop Time Status Last Admin Dose Admin Ondansetron HCl 4 mg Q4HP PRN IV 02/23/25 15:45 Docusate Sodium 100 mg BIDPRN PRN PO 02/23/25 15:45 Morphine Sulfate 2 mg Q4HPRN PRN IV 02/23/25 15:45 Nitroglycerin 0.4 mg Q5MINP PRN SL 02/23/25 15:45 Aspirin 81 mg DAILY PO 02/24/25 10:00 02/27/25 09:26 81 MG Sodium Chloride 1,000 ml @ 70 mls/hr [id number] IV 02/24/25 12:30 02/27/25 09:30 70 MLS/HR Lorazepam 1 mg ONCE PRN IV 02/25/25 00:00 Acetaminophen 650 mg Q6HP PRN PO 02/26/25 12:15 Enoxaparin Sodium 40 mg DAILY SC 02/28/25 10:00 objective General: the patient is well developed and nourished. No acute distress. MENTAL STATUS: Subjective SPEECH, LANGUAGE, HIGHER CORTICAL FUNCTION: no aphasia or dysathria. CRANIAL NERVES: Pupils are equal, round and reactive. EOMs full and conjugate. No nystagmus. Diminished pinprick and light touch in the right face, but absence of pinprick light touch if both side face is examined simultaneously. Mandibular strength intact. Facial muscles symmetrical and strength intact. Tongue midline. No fasciculations or atrophy. SENSATION: Sensation to touch and pinprick is mildly diminished in the right neck, shoulder, extremities and torso MOTOR: Normal tone in the upper and lower extremity. Normal muscle bulk. No fasciculations. No abnormal movements or posturing. Muscle strength of the major groups in the left extremities is 5/5. Muscle strength of the major groups in the right extremities is close to 5/5 REFLEXES: Deep tendon reflexes are symmetrical. No pathological reflexes. CEREBELLAR/COORDINATION: Deferred GAIT/STATION: deferred.Whole right-sided paresthesia, weakness, etiology unclear laboratory and microbiology Laboratory Tests 02/24/25 06:58 Test 02/24/25 06:58 Range/Units Serum Glucose 85 74-106 mg/dL Problem List Whole right-sided paresthesia, weakness, etiology unclear Multiple sclerosis Sarcoidosis Vasculitis As inflammatory disorder Assessment/Plan Monitoring Supportive treatment Telemetry RICHARD ANCA panel Up to chair Physical therapy More recommendation per clinical course This medical document was created using an electronic medical record system with [employer] dictation system. Although this document has been carefully reviewed, there may still be some phonetic and typographical errors. These areas are purely typographical due to imperfections of the software programs, and do not reflect any compromise in the patient's medical care. Prognosis poor Dietary Evaluation Review Comments: 1) Continue cardiac diet 2) Encourage optimal PO intake 3) Follow-up with neurology and cardiology 4) Continue to monitor I&O, labs, and skin integrity Expected Outcomes/Goals: 1) appetite and labs to improve 2) f/u in 3-5 days Plan discussed with: Patient, Other Total Time (mins): 35 DANN RICE MD Feb 27, 2025 23:17
[2025-02-28 01:00] VITALS: BP 101/63; PULSE 60; RESP 17; TEMP 98.2; O2SAT 98
[2025-02-28 05:00] VITALS: BP 106/55; PULSE 72; RESP 16; TEMP 98.1; O2SAT 98
[2025-02-28 08:00] VITALS: PULSE 68; RESP 18; O2SAT 97
[2025-02-28 09:00] VITALS: BP 153/100; PULSE 104; RESP 17; TEMP 98.5; O2SAT 95
[2025-02-28] MEDS: ENOXAPARIN SOD 40 MG/0.4 ML SYRINGE SC SCH (10:00)
[2025-02-28 11:07] LABS: Anti-Nuclear Antibody Direct Negative (Negative)
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
[2025-02-28 13:00] VITALS: BP 155/104; PULSE 86; RESP 18; TEMP 97.4; O2SAT 95
== END 2025-02-28 15:14 | disposition home or self-care (01) | DRG 66 ==
LOC: ER 12:06 → OVERFLOW 15:38 → EAST 23:56
PROVIDERS: ADMIT Hospitalist; ATTEND Hospitalist
DX: I63.89 Other cerebral infarction (principal); I77.6 Arteritis, unspecified; G35 Multiple sclerosis; J44.9 Chronic obstructive pulmonary disease, unspecified; F41.9 Anxiety disorder, unspecified; D86.89 Sarcoidosis of other sites
CPT/HCPCS: 36415; 70496; 70498; 70551; 70553; 71046; 72147; 72157; 80048; 80053; 81001; 82164; 82607; 82746; 83520; 84439; 84443; 85025; 85610; 85652; 85730; 86038; 86141; 86160; 86256; 86431; 92610; 93005; 97110; 97116; 97163; G0378